=== PATIENT | male | born 1990 | race African-American/Black ===

== ENCOUNTER → 2020-04-03 | Outpatient (CLI) | payer BC ==
--- NOTE | 2020-04-03 17:08 | RAD ---
RENAL ARTERY ARTERIAL DOPPLER ULTRASOUND Clinical Indication: Reason: HTN / Spl. Instructions: / History: Comparison: None. Technique: Multiple grayscale, color flow, and Doppler spectral waveform analysis images of the abdominal aorta and renal arteries were obtained. Findings: The abdominal aorta is not well seen due to overlying bowel gas. The diameter appears normal. Abdominal aorta peak systolic velocity: 106 cm/sec. Right main renal artery peak systolic velocity: 155 cm/sec. Right renal artery to aorta ratio: 1.5 Left main renal artery peak systolic velocity: 104 cm/sec. Left renal artery to aorta ratio: 1 Renal veins are patent. IVC is mostly obscured due to overlying bowel gas. The right kidney measures 13.2 cm. The left kidney measures 12.7 cm. Kidneys are normal in echotexture. No hydronephrosis. The urinary bladder appears normal. IMPRESSION: No evidence of hemodynamically significant renal artery stenosis. Electronically signed by: Casey Moreau MD (04/03/2020 5:05 PM) [facility]
== END ==
LOC: US 15:13
PROVIDERS: ATTEND Internal Medicine
DX: I10 Essential (primary) hypertension (principal)
CPT/HCPCS: 93975